=== PATIENT | female | born 1970 | race Caucasian/White ===

== ENCOUNTER → 2021-04-24 | Outpatient (CLI) | payer OTHER ==
[~2021-04-24] MED LIST: ACET325; ACET500; ALBU90OI; ALBU90OI INH; AZIT250 PO; CEPH250A; CEPH500 PO; CHLGLU.12S MT; CIPR500 PO; CITA20; CITA20 PO; CLIN150; CLIN150 PO; CLIN300 PO; CYCL10 PO; Cleocin HCl300 MG PO; HYDACE5 PO; HYDGUAL120 PO; IBUP200; IBUP600; IBUP800; IBUP800 PO; Lotrimin Ultra12 GM TP; METPRE4DP PO; NAPR500; NAPR500 PO; Naprosyn500 MG PO; Norco 5-325 Ta1 EACH PO; OXYACE5T PO; PHENA200 PO; PROM25 PO; RXCLIN PO; RXCYCL10 PO; RXHYDACE PO; RXOXYACE PO; TYLENOL; Ultram50 MG PO
== END | disposition home or self-care (01) ==
LOC: LAB SHORT 16:03 → LAB 16:03
DX: M25.462 Effusion, left knee (principal); M25.50 Pain in unspecified joint
CPT/HCPCS: 86430

== ENCOUNTER → 2021-07-13 | Outpatient (CLI) | payer OTHER ==
[2021-07-15 05:13] LABS: CHLAMYDIA TRACHOMATIS, NAA Negative (Negative)
== END | disposition home or self-care (01) ==
LOC: LAB SHORT 11:10 → LAB 11:10
PROVIDERS: Physician Assistant Surgical
DX: N72 Inflammatory disease of cervix uteri (principal)
CPT/HCPCS: 87070; 87205; 87491; 87591

== ENCOUNTER → 2021-07-17 | Outpatient (CLI) | payer OTHER ==
[2021-07-17 09:54] LABS: Source, Urine Clean Catch
[2021-07-17 13:18] LABS: Appearance, Urine Clear (Clear); Bilirubin, Urine Neg (Neg); Blood, Urine Neg (Neg); Color, Urine Yellow (P-Yellow); Glucose Qualitative, Urine Neg (Neg); Ketones, Urine 1+ (Neg); Leukocyte Esterase, Urine Neg (Neg); Nitrite, Urine Neg (Neg); Protein, Urine 1+ (Neg); Urobilinogen, Urine NORM (Normal)
[2021-07-19 04:08] LABS: CHLAMYDIA TRACHOMATIS, NAA Negative (Negative); HPV 16 Negative (Negative); HPV 18 Negative (Negative); HPV OTHER HR TYPES Negative (Negative)
== END | disposition home or self-care (01) ==
LOC: LAB SHORT 09:46 → LAB 09:46
PROVIDERS: Obstetrics & Gynecology
DX: Z01.419 Encounter for gynecological examination (general) (routine) without abnormal findings (principal); R35.0 Frequency of micturition
CPT/HCPCS: 87491; 87591; 87624; G0123

== ENCOUNTER 2021-11-08 07:24 | Emergency (ER) | payer OTHER ==
[~2021-11-08] VITALS: Ht 165.1 cm; Wt 70.3 kg
[2021-11-08] MEDS ORDERED: LEVSOD137 PO (07:44)
== END 2021-11-08 07:51 | disposition home or self-care (01) ==
LOC: ER 07:24
DX: M54.12 Radiculopathy, cervical region (principal); F41.9 Anxiety disorder, unspecified; F45.0 Somatization disorder; E03.9 Hypothyroidism, unspecified; Z88.0 Allergy status to penicillin; Z88.5 Allergy status to narcotic agent; Z79.899 Other long term (current) drug therapy
CPT/HCPCS: 99283

== ENCOUNTER → 2022-02-07 | Outpatient (CLI) | payer OTHER ==
[~2022-02-07] MED LIST changes: +LEVSOD137 PO
[2022-02-08 13:00] LABS: Candida species (DNA Probe) Negative (NEGATIVE); G. vaginalis (DNA Probe) Positive (NEGATIVE); T. vaginalis (DNA Probe) Negative (NEGATIVE)
== END | disposition home or self-care (01) ==
LOC: LAB SHORT 12:04 → LAB 12:04
PROVIDERS: Advanced Practice Midwife
DX: N72 Inflammatory disease of cervix uteri (principal)
CPT/HCPCS: 87070; 87205; 87480; 87510; 87660

== ENCOUNTER → 2023-02-23 | Outpatient (CLI) | payer OTHER ==
[2023-02-24 09:54] LABS: Candida species (DNA Probe) Negative (NEGATIVE); G. vaginalis (DNA Probe) Negative (NEGATIVE); T. vaginalis (DNA Probe) Negative (NEGATIVE)
[2023-02-26 14:12] LABS: HSV-1 DNA Negative (Negative); HSV-2 DNA Negative (Negative)
== END | disposition home or self-care (01) ==
LOC: LAB SHORT 13:04 → LAB 13:04
PROVIDERS: Physician Assistant Surgical
DX: R10.2 Pelvic and perineal pain (principal)
CPT/HCPCS: 87480; 87510; 87529; 87660

== ENCOUNTER → 2023-02-26 | Outpatient (CLI) | payer OTHER ==
[2023-02-27 11:51] LABS: Candida species (DNA Probe) Negative (NEGATIVE); G. vaginalis (DNA Probe) Negative (NEGATIVE); T. vaginalis (DNA Probe) Negative (NEGATIVE)
[2023-02-28 01:10] LABS: CHLAMYDIA TRACHOMATIS, NAA Negative (Negative)
== END | disposition home or self-care (01) ==
LOC: LAB SHORT 13:21 → LAB 13:21
PROVIDERS: Family Medicine
DX: R10.2 Pelvic and perineal pain (principal)
CPT/HCPCS: 87480; 87491; 87510; 87591; 87660

== ENCOUNTER → 2024-08-24 | Outpatient (CLI) | payer OTHER ==
[2024-08-24 15:42] LABS: Bacterial Vaginosis PCR Negative (NEGATIVE); Candida Group, PCR NOT DETECTED (NOT DETECT); Candida glabrata-krusei, PCR NOT DETECTED (NOT DETECT)
[2024-08-28 18:46] LABS: 3-OH-COTININE, URN, QUANT >2000 ng/mL; ANABASINE, URN, QUANT 11 ng/mL; COTININE, URN, QUANT 1369 ng/mL; NICOTINE, URN, QUANT >2000 ng/mL
== END ==
LOC: LAB 11:07 → LAB SHORT 11:07
PROVIDERS: Obstetrics & Gynecology
DX: N89.8 Other specified noninflammatory disorders of vagina (principal); F17.200 Nicotine dependence, unspecified, uncomplicated
CPT/HCPCS: 87481; 87661; 87801; G0480

== ENCOUNTER → 2024-08-30 | Outpatient (CLI) | payer OTHER ==
[2024-08-30 12:02] LABS: Source, Urine Clean Catch
[2024-08-30 13:11] LABS: Appearance, Urine Clear (Clear); Bilirubin, Urine Neg (Neg); Blood, Urine Neg (Neg); Color, Urine Yellow (P-Yellow); Glucose Qualitative, Urine Neg (Neg); Ketones, Urine Neg (Neg); Leukocyte Esterase, Urine 1+ (Neg); Nitrite, Urine Neg (Neg); Protein, Urine Neg (Neg); Urobilinogen, Urine NORM (Normal)
[2024-08-30 13:41] LABS: Bacteria Many /hpf; Red Blood Cells, Urine 0-2 /hpf (0-2); Squamous Epithelial Cells Rare /hpf (Few)
== END ==
LOC: LAB SHORT 12:00 → LAB 12:00
PROVIDERS: Obstetrics & Gynecology
DX: N39.46 Mixed incontinence (principal)
CPT/HCPCS: 81001; 87086

== ENCOUNTER 2024-11-15 09:03 | Day surgery (SDC) | payer OTHER ==
[2024-11-15] VITALS (15 sets, daily range): BP systolic 102–127; BP diastolic 58–80
[~2024-11-15] VITALS: Ht 165.1 cm; Wt 74.4 kg
[~2024-11-15 09:03] MED LIST changes: +ACET500 PO; +CeFAZolin Sodium 2,000 MG in NS 100 ML IV SCH; +EUTHYROX50 MCG PO; -LEVSOD137 PO; +Lactated Ringer's 1,000 ML IV SCH
[2024-11-15] MEDS ORDERED: CeFAZolin Sodium 2,000 MG VIAL ONE (09:05)
[2024-11-15] MEDS ORDERED: Bupivacaine 0.5% HCl 5 MG/ML 30MLVIAL ONE (09:20)
[2024-11-15] MEDS ORDERED: Scopolamine Hydrobromide Patch TOP ONE (09:50)
[2024-11-15] MEDS ORDERED: Midazolam HCl 1MG / ML 2ML Vial ONE (09:52)
[2024-11-15] MEDS ORDERED: propofoL 20 ML IV ONE (09:52)
[2024-11-15] MEDS ORDERED: FentaNYL Citrate 50 MCG/ML 2 ML Injection ONE (09:52)
[2024-11-15] MEDS ORDERED: Rocuronium Bromide 10 MG/ML 5ML Injection IV ONE (09:52)
--- NOTE | 2024-11-15 09:56 | NUR ---
History, Chart, Medications and Allergies reviewed before start of procedure. Patient reports completing Chlorhexadine shower X2 prior to admission to hospital. Patient confirms NPO status and agrees with scheduled surgery. Lungs clear T/O to Auscultation. Pre-Op teaching done. Pt verbalizes understanding.
[2024-11-15] MEDS ORDERED: Ondansetron HCl 2 MG / ML 2ML Vial ONE (09:59)
[2024-11-15] MEDS ORDERED: Dexamethasone Sod Phos 10 MG/ML 1ML VIAL ONE (09:59)
[2024-11-15] MEDS ORDERED: Lidocaine 1%-Epineph 1:200000 30 ML SDV ONE (10:02)
[2024-11-15] MEDS ORDERED: Albuterol HFA200 ACT/6.7 GM INH INH PRN (10:10)
[2024-11-15] MEDS ORDERED: Metoprolol Tartrate 5 ML IV ONE (10:21)
[2024-11-15] MEDS ORDERED: HYDROmorphone HCl/Pf 1MG SYR ONE (10:57)
[2024-11-15] MEDS ORDERED: Sugammadex Sodium 200 MG/2ML SDV (100 MG/ML) ONE (11:19)
[2024-11-15] MEDS ORDERED: FentaNYL Citrate 50 MCG/ML 2 ML Injection IV PRN ×2 (11:20→11:25)
[2024-11-15] MEDS ORDERED: HYDROmorphone HCl/Pf 1MG SYR IV PRN ×2 (11:20→11:25)
[2024-11-15] MEDS ORDERED: Labetalol HCL 5 MG/ML 4ML Injection (Single Dose) IV PRN (11:25)
[2024-11-15] MEDS ORDERED: Atropine Sulfate 0.1 MG/ML 10ML SYR IV PRN (11:25)
[2024-11-15] MEDS ORDERED: Albuterol 2.5 MG/3 ML VIAL INH PRN (11:25)
[2024-11-15] MEDS ORDERED: Droperidol 5 mg/2 ml Vial IV PRN (11:25)
[2024-11-15] MEDS ORDERED: Ondansetron HCl 2 MG / ML 2ML Vial IV PRN ×2 (11:25→12:00)
[2024-11-15] MEDS ORDERED: Metoclopramide HCl 10 MG Tab PO PRN (12:00)
[2024-11-15] MEDS ORDERED: Naloxone HCl 0.4MG / ML 1ML Vial IV PRN (12:00)
[2024-11-15] MEDS ORDERED: Metoclopramide HCl 5MG / ML 2ML Vial IV PRN (12:00)
[2024-11-15] MEDS ORDERED: Morphine Sulfate 4 MG/1 ML Injection IV PRN (12:00)
[2024-11-15] MEDS ORDERED: Lactated Ringer's 1,000 ML IV SCH (12:00)
[2024-11-15] MEDS ORDERED: Ondansetron 4 MG TAB PO PRN (12:05)
[2024-11-15] MEDS ORDERED: DiphenhydrAMINE HCL 25 MG Cap PO PRN (12:05)
[2024-11-15] MEDS ORDERED: Acetaminophen 500 MG Tab PO PRN (12:05)
[2024-11-15] MEDS ORDERED: FLU VACC TS2024-25(6MOS UP)/PF 45 MCG/0.5 ML SYRINGE IM SCH (12:05)
[2024-11-15] MEDS ORDERED: OxyCODONE HCL 5 MG TAB PO PRN (12:05)
[2024-11-15] MEDS ORDERED: Simethicone 80 MG Chew PO PRN (12:10)
[2024-11-15] MEDS ORDERED: Ketorolac Tromethamine 30mg Vial IV PRN (12:15)
[2024-11-15] MEDS ORDERED: Ketorolac Tromethamine 30mg Vial ONE (12:28)
--- NOTE | 2024-11-15 13:27 | NUR ---
PT ARRIVED TO UNIT FROM PACU TRANSFERRED PT FROM [facility] TO BED. ORIENTED TO USE OF CALL LIGHT. LAP INCISIONS TO ABD CDI. MIGUEL A PAD IN PLACE. VSS. VISITOR BEDSIDE. CALL LIGHT IN REACH.
--- NOTE | 2024-11-15 17:00 | NUR ---
SUMMARY NO ACUTE CHANGES SINCE ARRIVING TO UNIT FROM PACU. SLEPT T/O MOST OF AFTERNOON. AWAKE AT THIS TIME. MEDICATED PER ORDERS FOR 7/10 ABD AND MIGUEL A PAIN. OXIMETRY IN PLACE. VSS. CALL LIGHT IN REACH.
--- NOTE | 2024-11-15 19:04 | NUR ---
DOLORES UGALDE DC'D PER ORDERS. BEDSIDE REPORT GIVEN TO ONCOMING RN, REBA Costello
[2024-11-16] VITALS (8 sets, daily range): BP systolic 84–117; BP diastolic 45–67
--- NOTE | 2024-11-16 02:45 | NUR ---
PTS SYSTOLIC 94/60 r and 99/60 L AND HEART RATE 50-60, 2 L 02 94-95 % AFTER TRENDING VS- I CALLED DR MCKEON COVERING FOR DR Amanda CASTILLO AND DISCUSSED ASSESSMEN,I/O AND VS,ORDER RECEIVED FOR CBC/BMP.
[2024-11-16 03:40] LABS: BASOPHILS ABSOLUTE AUTO 0.03 K/mm3 (0.00-0.23); BASOPHILS PERCENT AUTO 0 % (0-2); EOSINOPHILS ABSOLUTE AUTO 0.01 K/mm3 (0.00-0.68); EOSINOPHILS PERCENT AUTO 0 % (0-6); Hematocrit 34.9 % (33.0-51.0); Hemoglobin 12.1 g/dL (11.5-16.0); IMMATURE GRAN ABSOLUTE AUTO 0.04 K/mm3 (0.00-0.10); IMMATURE GRAN PERCENT AUTO 0 % (0-1); LYMPHOCYTES ABSOLUTE AUTO 1.63 K/mm3 (0.84-5.20); LYMPHOCYTES PERCENT AUTO 10 % (21-46); MONOCYTES ABSOLUTE AUTO 1.15 K/mm3 (0.16-1.47); MONOCYTES PERCENT AUTO 7 % (4-13); Mean Corpuscular HGB 32.5 pg (26.0-34.0); Mean Corpuscular HGB Conc 34.7 g/dL (31.5-36.5); Mean Corpuscular Volume 94 fL (80-100); Mean Platelet Volume 10.4 fL (9.1-12.4); NEUTROPHILS PERCENT AUTO 82 % (41-73); Platelet Count 245 K/mm3 (150-400); RDW Coefficient Variation 11.9 % (11.7-14.2); RDW Standard Deviation 41.6 fL (35.1-46.3); Red Blood Cell Count 3.72 M/mm3 (3.80-5.20); White Blood Cell Count 15.96 K/mm3 (4.00-11.30)
[2024-11-16 04:03] LABS: Bun/Creatinine Ratio 13.2 (12.0-20.0); Calcium, Blood 8.4 mg/dL (8.5-10.1); Creatinine, Blood 0.91 mg/dL (0.40-1.00); Potassium, Blood 4.5 mmol/L (3.5-5.5)
[2024-11-16] MEDS ORDERED: Levothyroxine Sodium 0.05 MG Tab PO SCH (06:00)
--- NOTE | 2024-11-16 06:12 | NUR ---
SEE LABS,VS STABLE,VOIDING WITH MINIMAL RESIDUALS.
[2024-11-16] MEDS ORDERED: OXAYDO5 M1 PO (09:54)
--- NOTE | 2024-11-16 10:21 | NUR ---
DR ESQUIVEL GAVE PERMISSION FOR PT TO DISCHARGE.
--- NOTE | 2024-11-16 10:36 | NUR ---
DISCHARGING PT VOIDING WELL AND PAIN TOLERABLE. TAKING PO WITHOUT DIFFICULTY. AMBULATING INDEPENDENTLY. PROVIDED ABDOMINAL BINDER FOR COMFORT. PT WISHES TO DC HOME. VSS. REVIEWED DC INSTRUCTIONS WITH, VERBALIZED UNDERSTANDING. DC'D IV, CATHETER INTACT. PT LEFT UNIT IN WC W/POSSESSIONS AND DC PAPERWORK IN HAND TO MEET RIDE OUTSIDE.
== END 2024-11-16 10:36 | disposition home or self-care (01) ==
LOC: ORSCMMR 09:03 → ORD 10:00 → ORSCMMR 10:00 → ORD 10:15 → SURS 13:12 → ORSCMMR 11-16 10:36
PROVIDERS: Obstetrics & Gynecology
PROC: 0UT7FZZ Resection of Bilateral Fallopian Tubes, Via Natural or Artificial Opening With Percutaneous Endoscopic Assistance (ICD-10-PCS; principal; 2024-11-15 10:00)
PROC: 0UT2FZZ Resection of Bilateral Ovaries, Via Natural or Artificial Opening With Percutaneous Endoscopic Assistance (ICD-10-PCS; principal; 2024-11-15 10:00)
PROC: 0UT9FZZ Resection of Uterus, Via Natural or Artificial Opening With Percutaneous Endoscopic Assistance (ICD-10-PCS; principal; 2024-11-15 10:00)
PROC: 0JQC0ZZ Repair Pelvic Region Subcutaneous Tissue and Fascia, Open Approach (ICD-10-PCS; principal; 2024-11-15 10:00)
DX: N81.2 Incomplete uterovaginal prolapse (principal); K66.0 Peritoneal adhesions (postprocedural) (postinfection); F17.210 Nicotine dependence, cigarettes, uncomplicated; J45.909 Unspecified asthma, uncomplicated; Z79.899 Other long term (current) drug therapy
CPT/HCPCS: 36415; 80048; 85025; 88307; 94762; A9270; J0690; J1100; J1171; J1885; J2250; J2405; J2704; J3010; J7120